=== PATIENT | male | born 1970 | race Two or more races ===

== ENCOUNTER 2023-09-21 12:05 | Outpatient (CLI) | payer MEDICARE, MEDICAID | END 2023-09-21 23:59 | disposition home or self-care (01) | LOC: RAD 12:05 | PROVIDERS: ATTEND Family Medicine | DX: M25.772 Osteophyte, left ankle (principal); M25.572 Pain in left ankle and joints of left foot | CPT/HCPCS: 73610 ==

== ENCOUNTER 2024-01-21 19:28 | Emergency (ER) | payer MEDICARE, MEDICAID ==
[~2024-01-21] VITALS: Ht 165.1 cm; Wt 74.5 kg
--- NOTE | 2024-01-21 19:47 | NUR ---
PT REPORTS POST TRIAGE THAT HE HAD BLOODY SPIT UP AROUND JANUARY 05, TWO - THREE DAYS AFTER RETURNING FROM [facility], [place]. HE WENT TO [facility] AND THEY GAVE HIM 3 PILLS (PT DOESN'T REMEMBER WHAT MEDICATION WAS GIVEN) THAT HELPED HIM. THREE DAYS LATER THE PAIN RESUMED.
[2024-01-21 20:26] LABS: ALANINE AMINOTRANSFERASE 39 U/L (12-78); ALBUMIN/GLOBULIN RATIO 1.3 (1.1-1.5); ALKALINE PHOSPHATASE 113 IU/L (46-116); ANION GAP 10 (8-16); ASPARTATE AMINO TRANSFERASE 19 U/L (10-37); BILIRUBIN,TOTAL 0.3 MG/DL (0.1-1.0); BLOOD UREA NITROGEN 14 MG/DL (7-18); BUN/CREATININE RATIO 15.9 (10.0-20.0); CALCIUM 9.1 MG/DL (8.5-10.1); CHLORIDE 105 MMOL/L (99-107); CREATININE 0.88 MG/DL (0.60-1.10); GLUCOSE 113 MG/DL (70-104); POTASSIUM 3.9 MMOL/L (3.5-5.1); SODIUM 143 MMOL/L (135-145); TOTAL CARBON DIOXIDE 28.3 MMOL/L (24-32); TOTAL PROTEIN 7.2 G/DL (6.4-8.2); eCRCL 83 ML/MIN; eGFR 90 ML/MIN
[2024-01-21 20:31] LABS: BASOPHILS % (AUTO) 0.7 % (0-1); EOSINOPHILS # (AUTO) 0.6 X10'3 (0-0.9); EOSINOPHILS % (AUTO) 9.7 % (0-6); HEMATOCRIT 46.3 % (42.0-52.0); LYMPHOCYTES # (AUTO) 2.2 X10'3 (1.1-4.8); LYMPHOCYTES % (AUTO) 34.1 % (21-51); MEAN CORPUSCULAR HEMOGLOBIN 26.8 PG (27.0-31.0); MEAN CORPUSCULAR HGB CONC 32.3 g/dL (33.0-36.5); MEAN PLATELET VOLUME 9.1 FL (7.4-10.4); MONOCYTES # (AUTO) 0.6 X10'3 (0-0.9); MONOCYTES % (AUTO) 9.3 % (2-12); NEUTROPHILS # (AUTO) 2.9 X10'3 (1.8-7.7); NEUTROPHILS % (AUTO) 46.2 % (42-75); PLATELET COUNT 232 X10'3 (140-440); RED BLOOD COUNT 5.58 X10'6 (4.70-6.10); RED CELL DISTRIBUTION WIDTH 14.8 % (11.5-14.5); WHITE BLOOD COUNT 6.4 X10'3 (4.5-11.0)
[2024-01-21 20:35] LABS: PRO BRAIN NATRIURETIC PEPTIDE < 30 PG/ML (0-125)
[2024-01-21 21:41] VITALS: BP 158/103; PULSE 65; RESP 14; TEMP 98.2; O2SAT 98
== END 2024-01-21 21:44 | disposition home or self-care (01) ==
LOC: ER 19:28
DX: R07.89 Other chest pain (principal); Z98.890 Other specified postprocedural states
CPT/HCPCS: 36415; 71045; 80053; 83880; 84484; 85025; 93005; 99285

== ENCOUNTER 2024-08-02 18:56 | Emergency (ER) | payer MEDICARE, MEDICAID ==
[~2024-08-02] VITALS: Ht 162.6 cm; Wt 62.1 kg
[2024-08-02 19:11] VITALS: TEMP 96.8
[2024-08-02] MEDS: proCHLORperazine 10 MG/2 ml inj IV ONE (20:10)
[2024-08-02] MEDS: ketorolac trometh 15mg/ml vial 15 MG/ML ML IV ONE (20:10)
[2024-08-02] MEDS: normal saline 1000ml 1,000 ML IV ONE (20:10)
[2024-08-02] MEDS: acetaminophen 1,000mg/100ml IV 100 ML IV ONE (20:11)
[2024-08-02 22:01] VITALS: BP 165/105; PULSE 80; RESP 16; O2SAT 98
== END 2024-08-02 22:05 | disposition home or self-care (01) ==
LOC: ER 18:57
DX: G43.909 Migraine, unspecified, not intractable, without status migrainosus (principal); Z90.49 Acquired absence of other specified parts of digestive tract
CPT/HCPCS: 96365; 96366; 96375; 99284; J0131; J0780; J1885; J7030

== ENCOUNTER 2024-11-08 07:06 | Emergency (ER) | payer MEDICARE, MEDICAID ==
[~2024-11-08] VITALS: Ht 165.1 cm; Wt 69.8 kg
[2024-11-08 07:11] VITALS: TEMP 98
--- NOTE | 2024-11-08 07:53 | Physician Documentation ---
History of Present Illness ~ Chief Complaint: Laceration Stated Complaint: FACIAL WOUND Time Seen by MD: 07:49 Primary Medical Doctor: none HPI 54 year old male opened van door yesterday and scraped his left upper lip with the door. He was bleeding and was concerned. Also noted R eye redness without discharge or injury and was concerned. No trauma otherwise, no fevers, N/V/D, vi sual disturbances, or headache. Tetanus Within 5 Years: No Medication Reconciliation Allergies: Coded Allergies: No Known Allergies (Unverified , 08/02/24) Past Medical History Past Surgical History: appendectomy Alcohol Use: None Drug Use: none Lives with: Family Lives In: Home Occupation: employed Review of Systems All Other Systems at this time: Reviewed and Negative Physical Exam Vital Signs: RN Vital Signs have been reviewed: Yes, Temperature: 98.0, Source: Temporal, Heart Rate: 54, Respiratory Rate: 16, BP: 182/104, Pulse Oximetry: 98, Weight: 69.800 Oxygen Flow Rate: 0 Physical Exam HEENT: PERRL, moist oral mucosa, EOMI; L upper lip with 2cm linear abrasion which is clean, hemostatic; R eye with subconjunctival hemorrhage to 9 o'clock position. Pulmonary: No respiratory distress MSK: no deformity Skin: w/d/i, no rash Neuro: alert, nonfocal Psych: normal affect Progress Results/Orders Results/Orders Vital Signs 11/08/24 07:11 Temp 98.0 Pulse 54 Resp 16 B/P (MAP) 182/104 Pulse Ox 98 O2 Flow Rate 0 Medical Decision Making Findings 54 year old male with exam significant for subconjunctival hemorrhage and minor L upper lip abrasion. Counseled, reassured, discharged with return precautions. Differential Dx:Considerations: Include: Abrasion, Avulsion, Contusion, Laceration, Fracture, Hematoma, Retained foreign body Departure Disposition: 01 HOME / SELF CARE / HOMELESS Impression: Primary Impression: Abrasion Additional Impression: Subconjunctival hemorrhage Condition: Stable Discharge Instructions: Abrasion, Subconjunctival Hemorrhage Referrals: NO PRIMARY CARE PROVIDER (PCP) Education Educated: Patient Educated regarding: diagnosis, treatment, prognosis, need for follow up Signature Scribe Signature: .. Attestation: . SISSY DE LEON MD Nov 08, 2024 07:53
[2024-11-08 08:01] VITALS: BP 169/96; PULSE 54; RESP 15; O2SAT 98
== END 2024-11-08 08:25 | disposition home or self-care (01) ==
LOC: ER 07:07
DX: S00.511A Abrasion of lip, initial encounter (principal); H11.31 Conjunctival hemorrhage, right eye; X58.XXXA Exposure to other specified factors, initial encounter; Y93.89 Activity, other specified; Y92.89 Other specified places as the place of occurrence of the external cause; Y99.8 Other external cause status
CPT/HCPCS: 99281; 99282